=== PATIENT | male | born 1990 | race American Indian/Alaskan Native ===

== ENCOUNTER 2017-12-18 10:38 | Emergency (ER) | payer BC ==
[2017-12-18 10:49] VITALS: BP 138/81
[2017-12-18] MEDS ORDERED: ANTIVERT PO ONE (13:28)
--- NOTE | 2017-12-18 13:30 | Emergency Department Report ---
ED Dizziness HPI - General Chief Complaint: Dizziness Stated Complaint: DIZZINESS/VOMITING Time Seen by Provider: 12/18/17 13:28 Source: patient Mode of arrival: Ambulatory Limitations: No Limitations - History of Present Illness MD Complaint: dizziness -: Sudden History of Same: Yes History of Trauma: No Severity: mild Improves With: nothing Associated Symptoms: other (NAUSEA) - Related Data Allergies Allergy/AdvReac Type Severity Reaction Status Date / Time No Known Allergies Allergy Unverified 12/18/17 10:41 ED Review of Systems ROS: Stated complaint: DIZZINESS/VOMITING Other details as noted in HPI Comment: All other systems reviewed and negative Constitutional: other (DIZZY) Gastrointestinal: nausea ED Past Medical Hx - Past Medical History Previous Medical History?: Yes Hx Hypertension: Yes Hx Psychiatric Treatment: Yes (autism) Hx Asthma: Yes Additional medical history: bronchitis - Surgical History Past Surgical History?: Yes Additional Surgical History: tubes in ears - Social History Smoking Status: Never Smoker Substance Use Type: None ED Physical Exam - General Limitations: No Limitations General appearance: alert - Head Head exam: Present: atraumatic - Eye Eye exam: Present: normal appearance, PERRL, nystagmus (W RAPID HEAD TURN TO R AND L) - ENT ENT exam: Present: normal exam, mucous membranes moist - Neck Neck exam: Present: normal inspection - Respiratory Respiratory exam: Present: normal lung sounds bilaterally - Cardiovascular Cardiovascular Exam: Present: regular rate - GI/Abdominal GI/Abdominal exam: Present: soft - Extremities Exam Extremities exam: Present: normal inspection - Back Exam Back exam: Present: normal inspection - Neurological Exam Neurological exam: Present: alert, oriented X3, CN II-XII intact, normal gait - Psychiatric Psychiatric exam: Present: normal affect, normal mood, other (AUTISM) - Skin Skin exam: Present: warm, dry, intact ED Course Vital Signs 12/18/17 10:41 Temperature 98.7 F Pulse Rate 90 Respiratory 16 Rate Blood Pressure 138/81 O2 Sat by Pulse 97 Oximetry - Reevaluation(s) Reevaluation #1: Mr. Tavares is a 27-year-old male who presents to the emergency room today with his mother. Mr. Tavares has autism and lives in assisted living facility. He started complaining of dizziness yesterday and the facility had him evaluated at a hospital in [facility]. Mother was called to come and get him today. Mother brought him directly to the emergency room. Mother has discharge paperwork with her from the emergency room last night with a diagnosed him with vertigo and discharged him on Valium and Antivert. She has not given him any of these medications because she wanted him evaluated here. Patient does have dizziness with rapid head movements to the right into the left. He has nystagmus that is horizontal in nature with the rapid head turns. And some nausea. 12/18/17 14:11 ANTI VERT GIVEN WITH RELIEF MOM AND PT EDUCATED ON VERTIGO WILL FOLLOW UP WITH PCP NEXT WEEK VSS NAD TAKING PO AMBULATORY ED Medical Decision Making - Lab Data Result diagrams: 12/18/17 12:46 12/18/17 12:46 - EKG Data EKG shows normal: sinus rhythm - EKG Data When compared to previous EKG there are: no significant change - Medical Decision Making SEE NOTE - Differential Diagnosis VERTIGO V CARDIAC ARRHYTHMIA V ELECTROLYTE IMBALANCE Critical care attestation.: If time is entered above; I have spent that time in minutes in the direct care of this critically ill patient, excluding procedure time. ED Disposition Clinical Impression: Vertigo Disposition: DC-01 TO HOME OR SELFCARE Is pt being admited?: No Does the pt Need Aspirin: No Condition: Stable Instructions: Vertigo (ED) Additional Instructions: Do not use the Valium that was given to you in the ER last night He may take the Antivert as prescribed Follow-up with your primary care doctor at the end of next week. Additional PCP is in the area then provided C attached Make position changes slowly Hydrate well Return to the emergency room for worsening symptoms or periods of altered mentation Referrals: PRIMARY CAREMD [Primary Care Provider] - 3-5 Days [facility] [place] [Outside] - 3-5 Days [facility] [Outside] - 3-5 Days Time of Disposition: 14:05
[2017-12-18 13:51] LABS: Basophils % (Auto) 0.3 % (0.0-1.8); Eosinophils % (Auto) 0.2 % (0.0-4.3); Hematocrit 41.1 % (35.5-45.6); Hemoglobin 13.8 gm/dl (11.8-15.2); Lymphocytes % (Auto) 22.7 % (13.4-35.0); Mean Corpuscular HGB Conc 34 % (32-34); Mean Corpuscular Hemoglobin 28 pg (28-32); Mean Corpuscular Volume 82 fl (84-94); Monocytes # (Auto) 0.7 K/mm3 (0.0-0.8); Monocytes % (Auto) 7.8 % (0.0-7.3); Platelet Count 301 K/mm3 (140-440); Red Cell Distribution Width 13.3 % (13.2-15.2)
[2017-12-18 13:57] LABS: Alanine Aminotransferase 61 units/L (7-56); BUN/Creatinine Ratio 12; Blood Urea Nitrogen 11 mg/dL (9-20); Calcium 9.2 mg/dL (8.4-10.2); Hemolysis Index 63
[2017-12-18 14:37] LABS: Bilirubin,Urine NEG (Negative); Blood,Urine NEG (Negative); Color,Urine Yellow (Yellow); Mucus,Urine 3+ /HPF; Nitrite,Urine NEG (Negative); Urobilinogen,Urine < 2.0 mg/dL (<2.0)
== END 2017-12-18 14:21 | disposition home or self-care (01) ==
LOC: ED 10:38
DX: R42 Dizziness and giddiness (principal); I10 Essential (primary) hypertension; J45.909 Unspecified asthma, uncomplicated; J20.9 Acute bronchitis, unspecified
CPT/HCPCS: 36415; 80053; 81001; 85025; 93005; 93010; 99283